=== PATIENT | male | born 1960 | race Caucasian/White ===

== ENCOUNTER 2017-11-28 10:45 | Emergency (ER) | payer OTHER ==
[~2017-11-28] VITALS: Ht 172.7 cm; Wt 68.0 kg
--- NOTE | 2017-11-28 10:57 | ED GI/GU/ABDOMINAL COMPLAINT ---
History of Present Illness General Chief Complaint: General Adult Stated Complaint: ? LOW BLOOD PRESSURE Source: patient, old records Exam Limitations: no limitations Allergies Coded Allergies: NO KNOWN ALLERGIES (05/06/13) Reconcile Medications Allopurinol 300 MG TABLET 1 TAB PO DAILY GOUT (Reported) Atorvastatin Calcium 20 MG TABLET 1 TAB PO DAILY CHOLESTEROL (Reported) Lisinopril (Prinivil) 20 MG TABLET 1 TAB PO DAILY HEART (Reported) Triage Note: 57 YO MALE TO TRIAGE C/O LOW BLOOD PRESSURE. STATES HE SAW HIS DR YESTERDAY WHO TOLD HIM HIS BLOOD PRESSURE WAS LOW AND HE SHOULD COME TO THE ER FOR FLUIDS. STATES HE WAS VOMTIING UP UNTIL YESTERDAY BUT THAT HAS SUBSIDED. C/O WEAKNES. BP 68/00 IN TRIAGE Triage Nurses Notes Reviewed? yes Onset: Abrupt Duration: day(s): (4), better, constant Timing: recent history Quality/Severity: vomiting Severity Numbers: 5 Location: no pain Radiation: no radiation Activities at Onset: none No Modifying Factors: none Associated Symptoms: denies HPI: The 7-year-old male with history of high cholesterol hypertension presents to the ER sent in by his primary care physician. Patient states for the past 3 days he's had nausea and vomiting he saw his doctor yesterday who told him he had low blood pressure and he should go to the ER for fluids. He states he was told that he probably had a viral infection. He had a normal bowel movement this morning there is no hematemesis no diarrhea. No abdominal pain, HIS only abdominal surgery significant for a hernia repair. No chest pain no shortness of breath no fever no chills He was prescribed Zofran yesterday which she states is healthy has not had any subsequent vomiting (Quentin Templeton) Vital Signs & Intake/Output Vital Signs & Intake/Output Vital Signs Date Time Temp Pulse Resp B/P B/P Pulse O2 O2 Flow FiO2 Mean Ox Delivery Rate 11/28 1416 98.0 67 20 93/56 100 Room Air 11/28 1342 98.0 70 20 95/63 96 Room Air 11/28 1246 94/57 11/28 1216 93/60 11/28 1138 70 20 86/50 100 Room Air 11/28 1049 98.6 86 18 68/00 98 Room Air (Paula SANDS,Dennis Francisco) Past History Travel History Traveled to [place] past 21 day No Medical History Any Pertinent Medical History? see below for history Neurological: NONE EENT: NONE Cardiovascular: hyperlipidemia Respiratory: NONE Gastrointestinal: NONE Hepatic: NONE Renal: NONE Musculoskeletal: gout Psychiatric: NONE Endocrine: NONE Blood Disorders: NONE Cancer(s): NONE JUDGE'S CLERK/Reproductive: NONE Surgical History Surgical History: hernia repair-inguinal Psychosocial History What is your primary language Swazi Tobacco Use: Never used Family History Hx Contributory? No (Quentin Templeton) Review of Systems Review of Systems Constitutional: Reports: see HPI. Comments Review of systems: See HPI, All other systems negative. Constitutional, no chills no fever, HEENT: no sore throat no congestion Cardiovascular: No chest pain Skin: no rashes, no change in skin Respiratory: No dyspnea no cough no sputum GI: SEE HPI, no diarrhea, no bloating/constipation : No dysuria No hematuria, no frequency Muscle skeletal: No joint pain, no back pain Neurologic: , no headache Heme/endocrine: No bruising Immunology: No lymphadenopathy (Quentin Templeton) Physical Exam Physical Exam General Appearance: well developed/nourished, no apparent distress, alert, awake Gastrointestinal: normal bowel sounds, soft, non-tender Comments: Well-developed well-nourished person in no acute distress HEENT: Normal EENT exam; PERRL, EOMI, HEAD is atraumatic. moist mucous membranes. Neck: Supple, normal range of motion without pain or tenderness Back: Nontender, no CVA tenderness. Full range of motion Cardiovascular: Regular rate and rhythms no murmurs Respiratory: No respiratory distress. Patient speaking in full complete sentences. Breath sounds clear to auscultation bilaterally: NO W/R/R Abdomen: Soft, nontender nondistended, no appreciable organomegaly. Normal bowel sounds. No rebound/guarding, No appreciable enlargement of the abdominal aorta, No ascites. Extremity: No edema, full range of motion of extremities Neuro: Alert oriented x3, motor sensory normal, There were no obvious focal neurologic abnormalities. Skin: No appreciable rash on exposed skin, skin is warm and dry. Psych: Mood and affect is normal, memory and judgment is normal. Core Measures ACS in differential dx? No Sepsis Present: No Sepsis Focused Exam Completed? No (Quentin Templeton) Progress Differential Diagnosis: AMI, appendicitis, biliary colic, bowel obstruction, colon cancer, cholecystitis, diverticulitis, gastritis, hepatitis, hernia, inflamm bowel dis, perforated viscous, SBO Initial ED EKG: normal intervals, normal p-waves, normal QRS complex, normal sinus rhythm (Quentin Templeton) Plan of Care: Orders Procedure Date/time Status MISTAKE 11/28 1417 Active BASIC METABOLIC PANEL 11/28 1231 Complete EKG 11/28 1109 Active TROPONIN LEVEL 11/28 1054 Complete LIPASE 11/28 1054 Complete COMPREHENSIVE METABOLIC PANEL 11/28 1054 Complete CBC WITHOUT DIFFERENTIAL 11/28 1054 Complete Laboratory Tests 11/28/17 1325: Anion Gap 7, Estimated GFR 39 L, BUN/Creatinine Ratio 25.0, Glucose 104 H, Calcium 7.2 L 11/28/17 1102: Anion Gap 15, Estimated GFR 28 L, BUN/Creatinine Ratio 22.1, Glucose 166 H, Calcium 9.2, Total Bilirubin 1.1, AST 55, ALT 57, Alkaline Phosphatase 67, Troponin I < 0.01, Total Protein 7.3, Albumin 4.2, Globulin 3.1, Albumin/ Globulin Ratio 1.4, Lipase 162, CBC w Diff NO MAN DIFF REQ, RBC 5.10, MCV 90.1, MCH 31.4 H, MCHC 34.9, RDW 13.5, MPV 9.5, Gran % 78.1 H, Lymphocytes % 11.3 L , Monocytes % 10.2 H, Eosinophils % 0.2, Basophils % 0.2, Absolute Granulocytes 5.6, Absolute Lymphocytes 0.8 L, Absolute Monocytes 0.7 H, Absolute Eosinophils 0, Absolute Basophils 0 Patient denies any complaints other than feeling weak at this time no abdominal pain he denies nausea IV fluids running case discussed with Dr. Mitchell he is mentating well moist mucous membranes I discussed with him his elevated creatinine 2.4 patient denies history of kidney problems in the past I discussed with him need for admission which she is refusing, after discussing the case with Dr. Mitchell we will give the patient IV fluids recheck a creatinine continue to check his vital signs 14 00 patient resting in no acute distress at this time IV fluids running Discussed with the patient is repeat labs creatinine improved to 1.8 patient normotensive he is ambulatory around the emergency room without dizziness lightheadedness. Orthostatics are negative. I discussed with the patient plan of care-he will follow-up his primary care physician tomorrow copy of his labs were provided to him along with an outpatient slip for repeat BMP return precautions were discussed at least he's had no episodes of vomiting here he is tolerating by mouth, he feels comfortable with plan I answered all his questions (Quentin Templeton) Comments: 11/28/2017 12:01:59 PM patient's blood pressure is improving with IV fluids. (Paula SANDS,Dennis Francisco) Departure Departure Time of Disposition: 1430 Disposition: HOME OR SELF CARE Condition: Stable Clinical Impression Primary Impression: Dehydration Secondary Impressions: Acute kidney injury Referrals: Anita SANDS,Arnulfo Forde Additional Instructions: Follow-up with your primary care physician tomorrow you should have your kidney function rechecked as discussed continue taking the antinausea medicine as prescribed bland diet clear liquids drink plenty of clear liquids including water or Gatorade vitamin water. Return anytime sooner however here unable to keep this medication down yet persistent vomiting or any other concerns Departure Forms: Customer Survey General Discharge Information (Quentin Templeton) PA/[employer] Co-Sign Statement Statement: ED Attending supervision documentation- [X] I saw and evaluated the patient. I have also reviewed all the pertinent lab results and diagnostic results. I agree with the findings and the plan of care as documented in the PA's/[employer] OPERATOR's documentation. Patient presents for evaluation of dizziness and weakness coincident with a vomiting illness over the past few days. He was evaluated by his primary care physician yesterday who recommended he discontinue his blood pressure medication. Physical examination reveals a comfortable appearing conversant gentleman in no respiratory distress. Color is normal. [] I have reviewed the ED Record and agree with the PA's/[employer] OPERATOR's documentation. [] Additions or exceptions (if any) to the PAs/[employer] OPERATOR's note and plan are summarized below: [] (Paula SANDS,Dennis Francisco)
[2017-11-28 11:21] LABS: ABSOLUTE BASOPHIL COUNT 0 /CUMM (0.0-0.2); ABSOLUTE EOSINOPHIL COUNT 0 /CUMM (0.0-0.7); ABSOLUTE GRANULOCYTE CT 5.6 /CUMM (1.4-6.5); ABSOLUTE LYMPH COUNT 0.8 /CUMM (1.2-3.4); ABSOLUTE MONOCYTE COUNT 0.7 /CUMM (0.10-0.60); BASOPHIL % 0.2 % (0.0-2.0); EOSINOPHIL % 0.2 % (0-5); GRANULOCYTE % 78.1 % (42.2-75.2); MEAN CORPUSCULAR HGB 31.4 PG (27.0-31.0); MEAN CORPUSCULAR HGB CONC 34.9 G/DL (33.0-37.0); MEAN CORPUSCULAR VOLUME 90.1 FL (80.0-94.0); MEAN PLATELET VOLUME 9.5 FL (7.4-10.4); PLATELET COUNT 181 /CUMM (130-400); RBC DISTRIBUTION WIDTH 13.5 % (11.5-14.5); WHITE BLOOD CELL COUNT 7.2 /CUMM (4.8-10.8)
[2017-11-28] MEDS ORDERED: ALLOPURINOL300 M1 PO (12:03)
[2017-11-28] MEDS ORDERED: PRINIVIL20 M1 PO (12:03)
[2017-11-28] MEDS ORDERED: ATORVASTATIN CA20 M1 PO (12:04)
[2017-11-28 14:16] VITALS: BP 93/56
== END 2017-11-28 14:37 ==
LOC: ERH 10:45
PROVIDERS: Physician Assistant Medical
DX: E86.0 Dehydration (principal); N17.9 Acute kidney failure, unspecified
CPT/HCPCS: 93005; 93010; 96360; 96361